=== PATIENT | female | born 1955 | race Caucasian/White ===

== ENCOUNTER 2017-01-16 20:15 | Emergency (ER) | payer SELFPAY ==
[~2017-01-16] VITALS: Ht 172.7 cm; Wt 65.8 kg
[~2017-01-16 20:15] MED LIST: ANAPROX DS550 MG PO; LEVOFLOXACIN500 MG PO; MOBIC15 MG PO; SIMVASTATIN40 MG PO
[2017-01-16] MEDS ORDERED: NORCO 5-325 TA1 EACH PO (21:57)
== END 2017-01-16 22:01 | disposition home or self-care (01) ==
LOC: ED 20:15
DX: S62.102A Fracture of unspecified carpal bone, left wrist, initial encounter for closed fracture (principal); F17.200 Nicotine dependence, unspecified, uncomplicated; X58.XXXA Exposure to other specified factors, initial encounter; Y93.89 Activity, other specified; Y92.89 Other specified places as the place of occurrence of the external cause; Y99.8 Other external cause status